=== PATIENT | female | born 1960 | race Caucasian/White ===

== ENCOUNTER 2016-12-06 14:31 | Observation (INO) | payer BC ==
--- NOTE | 2016-12-06 15:03 | ER Document Report ---
ED Medical Screen (RME) - General Chief Complaint: Dizziness Stated Complaint: ABNORMAL LABS Time Seen by Provider: 12/06/16 14:58 Mode of Arrival: Ambulatory Information source: Patient Notes: 56 yr old female hx of iron deficiency and pernicious anemia presents with complaints of dizzy, heart racing I have greeted and performed a rapid initial assessment of this patient. A comprehensive ED assessment and evaluation of the patient, analysis of test results and completion of the medical decision making process will be conducted by additional ED providers. PHYSICAL EXAMINATION: GENERAL: Well-appearing, well-nourished and in no acute distress. HEAD: Atraumatic, normocephalic. EYES: Pupils equal round extraocular movements intact, conjunctiva are normal. ENT: Nares patent NECK: Normal range of motion LUNGS: No respiratory distress Musculoskeletal: Normal range of motion NEUROLOGICAL: Normal speech, normal gait. PSYCH: Normal mood, normal affect. SKIN: Warm, Dry, normal turgor, no rashes or lesions noted. TRAVEL OUTSIDE OF THE [place] IN LAST 30 DAYS: No - Related Data Allergies/Adverse Reactions: Penicillins Allergy (Severe, Verified 12/06/16 14:36) RASH Past Medical History - Social History Chew tobacco use (# tins/day): No Frequency of alcohol use: None Drug Abuse: None - Past Medical History Cardiac Medical History: Reports: Hx Hypertension - ON MEDS Denies: Hx Atrial Fibrillation, Hx Congestive Heart Failure, Hx Coronary Artery Disease, Hx DVT, Hx Heart Attack, Hx Hypercholesterolemia, Hx Peripheral Vascular Disease Pulmonary Medical History: Reports: Hx Asthma - Allergic asthma Denies: Hx Bronchitis, Hx COPD, Hx Pneumonia Neurological Medical History: Denies: Hx Cerebrovascular Accident, Hx Seizures Renal/ Medical History: Denies: Hx Peritoneal Dialysis GI Medical History: Reports: Hx Gastroesophageal Reflux Disease Musculoskeltal Medical History: Denies Hx Arthritis Psychiatric Medical History: Denies: Hx Depression Past Surgical History: Reports: Hx Section, Hx Hysterectomy - Immunizations Hx Diphtheria, Pertussis, Tetanus Vaccination: No Physical Exam - Vital signs Vitals: Temp Pulse Resp BP Pulse Ox 98.5 F 106 H 20 160/80 H 97 12/06/16 14:36 12/06/16 14:36 12/06/16 14:36 12/06/16 14:36 12/06/16 14:36 Course - Vital Signs Vital signs: Temp Pulse Resp BP Pulse Ox 98.5 F 106 H 20 160/80 H 97 12/06/16 14:36 12/06/16 14:36 12/06/16 14:36 12/06/16 14:36 12/06/16 14:36
[2016-12-06 15:48] LABS: ABSOLUTE LYMPHOCYTES (AUTO) 0.9 10^3/uL (0.5-4.7); ABSOLUTE MONOCYTES (AUTO) 0.4 10^3/uL (0.1-1.4); ABSOLUTE NEUT (AUTO) 9.3 10^3/uL (1.7-8.2); BASOPHILS % (AUTO) 0.5 % (0-2); EOSINOPHILS % (AUTO) 0.2 % (0-6); HEMATOCRIT 24.6 % (36.0-47.0); HEMOGLOBIN 8.1 g/dL (12.0-15.5); HGB HCT DIFFERENCE -0.3; MEAN CORPUSCULAR HEMOGLOBIN 29.9 pg (27.0-33.4); MEAN CORPUSCULAR VOLUME 91 fl (80-97); MONOCYTES % (AUTO) 3.8 % (3-13); RED BLOOD COUNT 2.72 10^6/uL (3.72-5.28); RED CELL DISTRIBUTION WIDTH 15.6 % (11.5-14.0); SEGMENTED NEUTROPHILS % (AUTO) 87.5 % (42-78); WHITE BLOOD COUNT 10.6 10^3/uL (4.0-10.5)
[2016-12-06 16:12] LABS: ALANINE AMINOTRANSFERASE 25 U/L (9-52); ALKALINE PHOSPHATASE 73 U/L (38-126); ANION GAP 9 (5-19); ASPARTATE AMINO TRANSFERASE 16 U/L (14-36); BILIRUBIN,DIRECT 0.2 mg/dL (0.0-0.4); BILIRUBIN,TOTAL 0.2 mg/dL (0.2-1.3); BLOOD UREA NITROGEN 17 mg/dL (7-20); CALCIUM 9.5 mg/dL (8.4-10.2); CARBON DIOXIDE 26 mmol/L (22-30); CHLORIDE 106 mmol/L (98-107); CREATININE RESULT 0.63 mg/dL (0.52-1.25); GLUCOSE 123 mg/dL (75-110); POTASSIUM 4.3 mmol/L (3.6-5.0); TOTAL PROTEIN 6.5 g/dL (6.3-8.2)
[2016-12-06] MEDS ORDERED: NORMAL SALINE 250 ML IV PRN (16:33)
--- NOTE | 2016-12-06 16:35 | ER Document Report ---
ED General - General Chief Complaint: Dizziness Stated Complaint: ABNORMAL LABS Time Seen by Provider: 12/06/16 14:58 Mode of Arrival: Ambulatory Notes: Patient is feeling weak and dizzy for the past couple of days. She is also noticed her heart rate increasing whenever she is moving around. Patient has a history of anemia probably secondary to GI bleeding, she says that she has been worked up multiple times with multiple colonoscopies. She has been seen at [facility] and evaluated. No one can find the source of the bleeding that happens intermittently. Her last bad bleeding episode was in April 2015 and she was admitted here and transfused. She is followed by Dr. Juarez. She gets iron infusions under his direction. She had an outpatient CBC done about a month ago showing a hemoglobin of 10. Patient denies any nausea or vomiting. She has had some diarrhea today and black-looking stool. She took an iron pill last night and is not sure if that might be causing the change in color of her stools. TRAVEL OUTSIDE OF THE [place] IN LAST 30 DAYS: No - Related Data Allergies/Adverse Reactions: Penicillins Allergy (Severe, Verified 12/06/16 14:36) RASH Past Medical History - General Information source: Patient - Social History Smoking Status: Never Smoker Chew tobacco use (# tins/day): No Frequency of alcohol use: None Drug Abuse: None Family History: Reviewed & Not Pertinent, CAD, Other - mother was anemic father of [place] age 88 - Past Medical History Cardiac Medical History: Reports: Hx Hypertension - ON MEDS Pulmonary Medical History: Reports: Hx Asthma - Allergic asthma GI Medical History: Reports: Hx Gastroesophageal Reflux Disease, Hx Colonoscopy , Hx Endoscopy Past Surgical History: Reports: Hx Section, Hx Herniorrhaphy, Hx Hysterectomy - Immunizations Hx Diphtheria, Pertussis, Tetanus Vaccination: No Hx Pneumococcal Vaccination: 12/01/07 Review of Systems - Review of Systems Notes: REVIEW OF SYSTEMS: CONSTITUTIONAL : Denies fever. EENT: Denies eye, ear, nose or mouth or throat pain or other symptoms. CARDIOVASCULAR: Denies chest pain. Noticed increased heart rate with physical activity over the past couple of days. RESPIRATORY: Denies cough, chest congestion, or shortness of breath. GASTROINTESTINAL: Denies abdominal pain or nausea, vomiting, but had black diarrhea today. GENITOURINARY: Denies difficulty or painful urinating, urinary frequency, blood in urine. MUSCULOSKELETAL: Denies back or neck pain. Denies joint pain or swelling. SKIN: Denies rash or skin lesions. NEUROLOGICAL: Denies LOC or altered mental status. Denies headache. Denies sensory loss or motor deficits. ALL OTHER SYSTEMS REVIEWED AND NEGATIVE. Physical Exam - Vital signs Vitals: Temp Pulse Resp BP Pulse Ox 98.5 F 106 H 20 160/80 H 97 12/06/16 14:36 12/06/16 14:36 12/06/16 14:36 12/06/16 14:36 12/06/16 14:36 Interpretation: Normal, Tachycardic - At 106. - Notes Notes: PHYSICAL EXAMINATION: GENERAL: Well-appearing, in no acute distress. Vital signs are normal except for heart rate of 106. HEAD: Atraumatic, normocephalic. EYES: Pupils equal round and reactive to light, extraocular movements intact. ENT: oropharynx clear without exudates. Moist mucous membranes. NECK: Normal range of motion, supple. LUNGS: Breath sounds clear and equal bilaterally. HEART: Regular rate and rhythm without murmurs. ABDOMEN: Soft, nontender. No guarding or rebound. BACK: No tenderness throughout entire back. EXTREMITIES: Normal range of motion without pain. NEUROLOGICAL: Normal speech, normal gait. Normal sensory, motor, and reflex exams. Awake, alert, and oriented x3. Cranial nerves normal. SKIN: Warm, dry, no rashes. Course - Re-evaluation Re-evalutation: 12/06/16 16:[address] Peace, primary care provider for this patient, and he will admit her for transfusions. 12/06/16 16:53 Hemoglobin is 8.1 and hematocrit is 24.6. - Vital Signs Vital signs: Temp Pulse Resp BP Pulse Ox 98.5 F 106 H 12 135/65 H 100 12/06/16 14:36 12/06/16 14:36 12/06/16 16:01 12/06/16 16:01 12/06/16 16:01 - Laboratory Result Diagrams: 12/06/16 15:30 12/06/16 15:30 Laboratory results interpreted by me: 12/06/16 12/06/16 12/06/16 15:30 15:30 15:30 WBC 10.6 H RBC 2.72 L Hgb 8.1 L Hct 24.6 L RDW 15.6 H Seg Neutrophils % 87.5 H Lymphocytes % 8.0 L Absolute Neutrophils 9.3 H Glucose 123 H Crossmatch See Detail Discharge - Discharge Clinical Impression: Anemia, GI bleeding Condition: Stable Disposition: ADMITTED OBSERVATION Admitting Provider: Merrill Unit Admitted: Telemetry Referrals: GIBSON PEACE MD [Primary Care Provider] - Follow up as needed
[2016-12-07] MEDS ORDERED: INFLUENZA ADLT QUAD (36MOS+) 2017-18 VAC 0.5 ML SYR IM PRN (00:03)
--- NOTE | 2016-12-07 06:01 | PDOC H&P ---
History of Present Illness Admission Date/PCP: 12/06/16 19:47 GIBSON PEACE MD Patient complains of: racing presyncope History of Present Illness: ROSALVA YAP is a 56 year old female with 7y history of blood loss anemia dependent on ferrahem which she last had in April. Even one iron pill a day caused nausea. In 2009 colonoscopy was negative. In 2012 ferritin<4 and capsule endoscopy was negative. In 2014 antiIF+ and monthly b12 shots were started. In [address] Michaels fulbrunoated a sessile sigmoid polyp. In 2016 capsule showed jejunal ulcer. Cutler device assisted enteroscopy of distal jejunum was negative. A tatoo was placed. Past Medical History Cardiac Medical History: Reports: Hyperlipidema, Hypertension - ON MEDS Denies: Atrial Fibrillation, Congestive Heart Failure, Coronary Artery Disease, DVT, Myocardial Infarction, Peripheral Vascular Disease Pulmonary Medical History: Reports: Asthma - Allergic asthma Denies: Bronchitis, Chronic Obstructive Pulmonary Disease (COPD), Pneumonia EENT Medical History: Reports: None Neurological Medical History: Reports: None Denies: Seizures Endocrine Medical History: Reports: None Renal/ Medical History: Reports: None Malignancy Medical History: Reports: None GI Medical History: Reports: Gastroesophageal Reflux Disease Musculoskeltal Medical History: Denies: Arthritis Psychiatric Medical History: Denies: Depression Traumatic Medical History: Reports: None Hematology: Reports: Anemia Infectious Medical History: Reports: None Past Surgical History Past Surgical History: Reports: Section, Herniorrhaphy, Hysterectomy Social History Information Source: Dr. Morris Lives with: Family Smoking Status: Never Smoker Frequency of Alcohol Use: None Hx Recreational Drug Use: No Drugs: None Hx Prescription Drug Abuse: No - Advance Directive Resuscitation Status: Full Code Family History Family History: CAD, CVA, Hypertension, Malignancy, Other - mother was anemic father of [place] age 88 Parental Family History Reviewed: Yes Children Family History Reviewed: Yes Sibling(s) Family History Reviewed.: Yes Medication/Allergy Home Medications: Sertraline HCl [Zoloft 50 mg Tablet] 50 mg PO DAILY #30 tablet 04/23/15 Metoprolol Succinate 25 mg PO DAILY 12/06/16 Pantoprazole Sodium [Protonix] 40 mg PO QAM 12/06/16 Cyanocobalamin (Vitamin B-12) [Physicians Ez Use B-12] 1,000 mcg IJ [id number] 10/16 Allergies/Adverse Reactions: Penicillins Allergy (Severe, Verified 12/06/16 14:36) RASH Review of Systems Constitutional: ABSENT: fever(s), headache(s), weight loss Nose, Mouth, and Throat: ABSENT: sore throat Cardiovascular: PRESENT: dyspnea on exertion, palpitations. ABSENT: chest pain , orthropnea Respiratory: ABSENT: cough Gastrointestinal: PRESENT: diarrhea - twice yesterday. ABSENT: abdominal pain, constipation, hematochezia, melena, vomiting Genitourinary: ABSENT: dysuria, hematuria Physical Exam Vital Signs: Temp Pulse Resp BP Pulse Ox 98.1 F 74 16 125/60 97 12/07/16 04:15 12/07/16 04:15 12/07/16 04:15 12/07/16 04:15 12/07/16 04:15 Intake & Output 12/05/16 12/06/16 12/07/16 07:59 07:59 07:59 Intake Total 1100 Balance 1100 General appearance: PRESENT: no acute distress Mouth exam: PRESENT: moist Neck exam: ABSENT: lymphadenopathy, tenderness, thyromegaly, tracheal deviation Respiratory exam: PRESENT: clear to auscultation graciela Cardiovascular exam: ABSENT: diastolic murmur, irregular rhythm, systolic murmur Vascular exam: ABSENT: pallor - after 3u GI/Abdominal exam: ABSENT: mass, organolmegaly, tenderness Extremities exam: ABSENT: pedal edema Neurological exam: PRESENT: oriented to situation Psychiatric exam: PRESENT: appropriate affect Results Laboratory Results: Abnormal - 24 hr 12/06/16 12/06/16 12/06/16 15:30 15:30 15:30 WBC 10.6 H RBC 2.72 L Hgb 8.1 L Hct 24.6 L RDW 15.6 H Seg Neutrophils % 87.5 H Lymphocytes % 8.0 L Absolute Neutrophils 9.3 H Glucose 123 H Crossmatch See Detail Assessment & Plan - Diagnosis (1) Iron deficiency anemia due to chronic blood loss Is this a current diagnosis for this admission?: Yes Plan: had 3u prbc. Hct and iron studies pending.
--- NOTE | 2016-12-07 06:07 | PDOC DISCHARGE SUMMARY ---
General - Admit/Disc Date/PCP Admission Date/Primary Care Provider: 12/06/16 19:47 GIBSON PEACE MD Discharge Date: 12/07/16 - Discharge Diagnosis (1) Iron deficiency anemia due to chronic blood loss Is this a current diagnosis for this admission?: Yes (2) Pernicious anemia Is this a current diagnosis for this admission?: Yes - Additional Information Resuscitation Status: Full Code Discharge Diet: As Tolerated Discharge Activity: Activity As Tolerated Home Medications: Sertraline HCl [Zoloft 50 mg Tablet] 50 mg PO DAILY #30 tablet 04/23/15 Metoprolol Succinate 25 mg PO DAILY 12/06/16 Pantoprazole Sodium [Protonix] 40 mg PO QAM 12/06/16 Cyanocobalamin (Vitamin B-12) [Physicians Ez Use B-12] 1,000 mcg IJ [id number] 10/16 History of Present Illness Patient complains of: racing presyncope History of Present Illness: ROSALVA YAP is a 56 year old female with 7y history of blood loss anemia dependent on ferrahem which she last had in April. Even one iron pill a day caused nausea. In 2009 colonoscopy was negative. In 2012 ferritin<4 and capsule endoscopy was negative. In 2014 antiIF+ and monthly b12 shots were started. In [address] Michaels fulbrunoated a sessile sigmoid polyp. In 2015 capsule showed jejunal ulcer. Cutler device assisted enteroscopy of distal jejunum was negative. A tatoo was placed. Hospital Course Hospital Course: back to baseline after 3u prbc Physical Exam Vital Signs: Temp Pulse Resp BP Pulse Ox 98.1 F 74 16 125/60 97 12/07/16 04:15 12/07/16 04:15 12/07/16 04:15 12/07/16 04:15 12/07/16 04:15 Intake & Output 12/05/16 12/06/16 12/07/16 07:59 07:59 07:59 Intake Total 1100 Balance 1100 General appearance: PRESENT: no acute distress Respiratory exam: PRESENT: clear to auscultation graciela Cardiovascular exam: ABSENT: clicks, irregular rhythm, systolic murmur GI/Abdominal exam: ABSENT: mass, organolmegaly, tenderness Extremities exam: ABSENT: pedal edema Neurological exam: PRESENT: oriented to situation Results Laboratory Results: Labs- Last Values WBC 10.6 10^3/uL (4.0-10.5) H 12/06/16 15:30 RBC 2.72 10^6/uL (3.72-5.28) L 12/06/16 15:30 Hgb 8.1 g/dL (12.0-15.5) L 12/06/16 15:30 Hct 24.6 % (36.0-47.0) L 12/06/16 15:30 MCV 91 fl (80-97) 12/06/16 15:30 MCH 29.9 pg (27.0-33.4) 12/06/16 15:30 MCHC 33.0 g/dL (32.0-36.0) 12/06/16 15:30 RDW 15.6 % (11.5-14.0) H 12/06/16 15:30 Plt Count 278 10^3/uL (150-450) 12/06/16 15:30 Seg Neutrophils % 87.5 % (42-78) H 12/06/16 15:30 Lymphocytes % 8.0 % (13-45) L 12/06/16 15:30 Monocytes % 3.8 % (3-13) 12/06/16 15:30 Eosinophils % 0.2 % (0-6) 12/06/16 15:30 Basophils % 0.5 % (0-2) 12/06/16 15:30 Absolute Neutrophils 9.3 10^3/uL (1.7-8.2) H 12/06/16 15:30 Absolute Lymphocytes 0.9 10^3/uL (0.5-4.7) 12/06/16 15:30 Absolute Monocytes 0.4 10^3/uL (0.1-1.4) 12/06/16 15:30 Absolute Eosinophils 0.0 10^3/uL (0.0-0.6) 12/06/16 15:30 Absolute Basophils 0.0 10^3/uL (0.0-0.2) 12/06/16 15:30 Sodium 141.0 mmol/L (137-145) 12/06/16 15:30 Potassium 4.3 mmol/L (3.6-5.0) 12/06/16 15:30 Chloride 106 mmol/L (98-107) 12/06/16 15:30 Carbon Dioxide 26 mmol/L (22-30) 12/06/16 15:30 Anion Gap 9 (5-19) 12/06/16 15:30 BUN 17 mg/dL (7-20) 12/06/16 15:30 Creatinine 0.63 mg/dL (0.52-1.25) 12/06/16 15:30 Est GFR ( Amer) > 60 (>60) 12/06/16 15:30 Est GFR (Non-Af Amer) > 60 (>60) 12/06/16 15:30 Glucose 123 mg/dL (75-110) H 12/06/16 15:30 Calcium 9.5 mg/dL (8.4-10.2) 12/06/16 15:30 Total Bilirubin 0.2 mg/dL (0.2-1.3) 12/06/16 15:30 Direct Bilirubin 0.2 mg/dL (0.0-0.4) 12/06/16 15:30 Indirect Bilirubin Not Reportable 12/06/16 15:30 Neonat Total Bilirubin Not Reportable 12/06/16 15:30 AST 16 U/L (14-36) 12/06/16 15:30 ALT 25 U/L (9-52) 12/06/16 15:30 Alkaline Phosphatase 73 U/L (38-126) 12/06/16 15:30 Total Protein 6.5 g/dL (6.3-8.2) 12/06/16 15:30 Albumin 4.0 g/dL (3.5-5.0) 12/06/16 15:30 Blood Type O NEGATIVE 12/06/16 15:30 Antibody Screen NEGATIVE 12/06/16 15:30 Crossmatch See Detail 12/06/16 15:30 EKG Comments: normal Qualifiers PATEINT BEING DISCHARGED WITH ANY OF THE FOLLOWING DIAGNOSIS?: No Plan Discharge Plan: home. Dr Juarez in 3d. in 11d
[2016-12-07 07:11] LABS: HEMATOCRIT 31.7 % (36.0-47.0); HGB HCT DIFFERENCE 0.4; MEAN CORPUSCULAR HEMOGLOBIN 30.3 pg (27.0-33.4); MEAN CORPUSCULAR HGB CONC 33.9 g/dL (32.0-36.0); MEAN CORPUSCULAR VOLUME 89 fl (80-97); RED BLOOD COUNT 3.55 10^6/uL (3.72-5.28); RED CELL DISTRIBUTION WIDTH 15.1 % (11.5-14.0); WHITE BLOOD COUNT 7.7 10^3/uL (4.0-10.5)
[2016-12-07 07:12] LABS: HEMOGLOBIN 10.7 g/dL (12.0-15.5)
[2016-12-07] MEDS ORDERED: LANSOPRAZOLE 30 MG TAB.RAP.DR PO SCH (08:00)
[2016-12-07 08:21] VITALS: BP 112/56
[2016-12-07] MEDS ORDERED: SERTRALINE HCL 50 MG TABLET PO SCH (10:00)
--- NOTE | 2016-12-07 17:02 | EKG REPORT ---
SEVERITY:- NORMAL ECG - SINUS RHYTHM : Confirmed by: Elizabeth Joiner MD 07-Dec-2016 17:01:23
== END 2016-12-07 09:08 | disposition home or self-care (01) ==
LOC: ER 14:31 → EH 17:26 → UNDOADMOB 17:26 → EH 19:22 → 5 19:22 → EH 19:47 → 5 19:47
PROVIDERS: ADMIT Family Medicine; ATTEND Family Medicine
PROC: 30233N1 Transfusion of Nonautologous Red Blood Cells into Peripheral Vein, Percutaneous Approach (ICD-10-PCS; principal; 2016-12-06)
PROC: 30233N1 Transfusion of Nonautologous Red Blood Cells into Peripheral Vein, Percutaneous Approach (ICD-10-PCS; 2016-12-07)
DX: D50.0 Iron deficiency anemia secondary to blood loss (chronic) (principal); D51.0 Vitamin B12 deficiency anemia due to intrinsic factor deficiency; Z86.010 Personal history of colon polyps; K28.9 Gastrojejunal ulcer, unspecified as acute or chronic, without hemorrhage or perforation; R19.7 Diarrhea, unspecified; I10 Essential (primary) hypertension; Z90.710 Acquired absence of both cervix and uterus; Z79.899 Other long term (current) drug therapy; Z98.890 Other specified postprocedural states; Z80.9 Family history of malignant neoplasm, unspecified; Z83.2 Family history of diseases of the blood and blood-forming organs and certain disorders involving the immune mechanism
CPT/HCPCS: 93005; 99285; 86900; 86901; 36415 ×2; 36430; 86850; 82607; 82728; 82746; 83540; 83550; 85025; 85027; 85045; 80053; 86920; 93010; P9016 ×2

== ENCOUNTER 2017-02-04 08:03 | Outpatient (CLI) | payer BC ==
[~2017-02-04 08:03] MED LIST: IRON DEXTRAN COMPLEX IV PRN; NORMAL SALINE 250 ML IV PRN; NORMAL SALINE IV PRN
[2017-02-04 08:22] VITALS: BP 157/74
== END 2017-02-04 13:53 | disposition home or self-care (01) ==
LOC: II 08:03 → 5TH 08:06 → II 13:53
PROVIDERS: ATTEND Internal Medicine
PROC: 3E033GC Introduction of Other Therapeutic Substance into Peripheral Vein, Percutaneous Approach (ICD-10-PCS; principal; 2017-02-04)
DX: D50.0 Iron deficiency anemia secondary to blood loss (chronic) (principal)
CPT/HCPCS: 96365; 96366; J1750; J7040; 96367

== ENCOUNTER 2017-12-30 12:05 | Outpatient (CLI) | payer BC ==
[~2017-12-30 12:05] MED LIST changes: +ACETAMINOPHEN 325 MG TABLET PO PRN; +DIPHENHYDRAMINE HCL 25 MG CAPSULE PO PRN; +FUROSEMIDE INJ/PF 20 MG/2 ML SDV IV PRN; -IRON DEXTRAN COMPLEX IV PRN; -NORMAL SALINE 250 ML IV PRN; -NORMAL SALINE IV PRN
[2017-12-30 12:22] LABS: HEMATOCRIT 27.5 % (36.0-47.0); HEMOGLOBIN 9.1 g/dL (12.0-15.5); MEAN CORPUSCULAR HEMOGLOBIN 27.2 pg (27.0-33.4); MEAN CORPUSCULAR HGB CONC 33.1 g/dL (32.0-36.0); MEAN CORPUSCULAR VOLUME 82 fl (80-97); PLATELET COUNT 313 10^3/uL (150-450); RED BLOOD COUNT 3.34 10^6/uL (3.72-5.28); RED CELL DISTRIBUTION WIDTH 17.3 % (11.5-14.0); WHITE BLOOD COUNT 9.6 10^3/uL (4.0-10.5)
[2017-12-30] MEDS ORDERED: NORMAL SALINE 250 ML IV PRN (12:33)
[2017-12-30 15:21] VITALS: BP 114/56
== END 2017-12-30 15:42 | disposition home or self-care (01) ==
LOC: II 12:05 → 5TH 12:30 → II 15:42
PROVIDERS: ATTEND Internal Medicine
PROC: 30233N1 Transfusion of Nonautologous Red Blood Cells into Peripheral Vein, Percutaneous Approach (ICD-10-PCS; principal; 2017-12-30)
DX: D64.9 Anemia, unspecified (principal)
CPT/HCPCS: 86900; 86901; 36415; 36430; 86850; 86920; P9016

== ENCOUNTER 2018-05-04 05:17 | Emergency (ER) | payer BC ==
[2018-05-04] MEDS ORDERED: NORMAL SALINE 1000 ML 1,000 ML IV ONE (06:05)
[2018-05-04 06:08] LABS: ABSOLUTE LYMPHOCYTES (AUTO) 0.6 10^3/uL (0.5-4.7); ABSOLUTE MONOCYTES (AUTO) 0.3 10^3/uL (0.1-1.4); ABSOLUTE NEUT (AUTO) 3.3 10^3/uL (1.7-8.2); BASOPHILS % (AUTO) 1.1 % (0-2); EOSINOPHILS % (AUTO) 1.1 % (0-6); LYMPHOCYTES % (AUTO) 14.5 % (13-45); MEAN CORPUSCULAR HEMOGLOBIN 25.4 pg (27.0-33.4); MEAN CORPUSCULAR HGB CONC 31.8 g/dL (32.0-36.0); MEAN CORPUSCULAR VOLUME 80 fl (80-97); MONOCYTES % (AUTO) 7.3 % (3-13); PLATELET COUNT 243 10^3/uL (150-450); RED BLOOD COUNT 2.26 10^6/uL (3.72-5.28); RED CELL DISTRIBUTION WIDTH 19.3 % (11.5-14.0); TOTAL CELLS COUNTED % (AUTO) 100 %; WHITE BLOOD COUNT 4.3 10^3/uL (4.0-10.5)
[2018-05-04 06:16] LABS: ALANINE AMINOTRANSFERASE 21 U/L (9-52); ALBUMIN 3.8 g/dL (3.5-5.0); ALKALINE PHOSPHATASE 101 U/L (38-126); ANION GAP 7 (5-19); ASPARTATE AMINO TRANSFERASE 13 U/L (14-36); BILIRUBIN,DIRECT 0.1 mg/dL (0.0-0.4); BILIRUBIN,TOTAL 0.2 mg/dL (0.2-1.3); BLOOD UREA NITROGEN 11 mg/dL (7-20); CALCIUM 8.6 mg/dL (8.4-10.2); CARBON DIOXIDE 27 mmol/L (22-30); CHLORIDE 107 mmol/L (98-107); GLUCOSE 108 mg/dL (75-110); POTASSIUM 3.9 mmol/L (3.6-5.0); TOTAL PROTEIN 6.3 g/dL (6.3-8.2)
[2018-05-04] MEDS ORDERED: NORMAL SALINE 250 ML IV PRN (06:27)
--- NOTE | 2018-05-04 06:40 | ER Document Report ---
ED General - General Chief Complaint: GI Bleeding Stated Complaint: WEAKNESS/HEADACHE Time Seen by Provider: 05/04/18 06:04 Primary Care Provider: SUSAN BURDICK MD [Primary Care Provider] - Follow up as needed Notes: 58-year-old female with history of chronic anemia due to unknown source GI bleeding presents with weakness fatigue. Patient was supposed to get 2 units of blood here in the hospital today but became very weak and fatigued last night. Denied any chest pain or shortness of breath. For the last 7-8 years the patient has been seeing gastroenterology has had endoscopy colonoscopy capsule endoscopy. She has been getting frequent blood transfusions. The source of the bleeding has not been located. Has underwent bleeding scans. The patient sees Dr. Neli camilo for hematology. The patient will get her 2 units of blood while she is here we will check some generalized labs EKG otherwise this is probably just acute on chronic anemia causing her symptoms. I see no reason to admit the patient because this is been chronic for the last 7 or 8 years has been worked up extensively. And may continue to do this outpatient. I do not think inpatient would benefit in any way TRAVEL OUTSIDE OF THE [place] IN LAST 30 DAYS: No - Related Data Allergies/Adverse Reactions: Penicillins Allergy (Severe, Verified 12/06/16 14:36) RASH Past Medical History - Social History Smoking Status: Never Smoker Chew tobacco use (# tins/day): No Frequency of alcohol use: None Drug Abuse: None Family History: CAD, CVA, Hypertension, Malignancy, Other - mother was anemic father of [place] age 88 Patient has suicidal ideation: No Patient has homicidal ideation: No - Past Medical History Cardiac Medical History: Reports: Hx Hypercholesterolemia, Hx Hypertension - ON MEDS Denies: Hx Atrial Fibrillation, Hx Congestive Heart Failure, Hx Coronary Artery Disease, Hx DVT, Hx Heart Attack, Hx Peripheral Vascular Disease Pulmonary Medical History: Reports: Hx Asthma - Allergic asthma Denies: Hx Bronchitis, Hx COPD, Hx Pneumonia Neurological Medical History: Denies: Hx Cerebrovascular Accident, Hx Seizures Renal/ Medical History: Denies: Hx Peritoneal Dialysis GI Medical History: Reports: Hx Gastroesophageal Reflux Disease, Hx Colonoscopy, Hx Endoscopy Musculoskeletal Medical History: Denies Hx Arthritis Psychiatric Medical History: Denies: Hx Depression Past Surgical History: Reports: Hx Section, Hx Herniorrhaphy, Hx Hysterectomy - Immunizations Hx Diphtheria, Pertussis, Tetanus Vaccination: No Hx Pneumococcal Vaccination: 12/01/07 Physical Exam - Vital signs Vitals: Resp 10 L 05/04/18 05:27 Course - Re-evaluation Re-evalutation: 05/04/18 09:43 The patient is been having problems with this bleeding for the last 7-8 years. This is chronic in nature she gets regular IV blood transfusions. [employer] to set her up for 2 units already today we will give her the 2 units and have her follow-up. She is been worked up consistently in the past I do not feel hospitalization would benefit her at this time. 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 - Vital Signs Vital signs: Temp Pulse Resp BP Pulse Ox 98.3 F 11 L 109/57 L 97 05/04/18 07:00 05/04/18 07:16 05/04/18 07:16 05/04/18 07:16 - Laboratory Result Diagrams: 05/04/18 05:33 05/04/18 05:33 Laboratory results interpreted by me: 05/04/18 05/04/18 05/04/18 05:33 05:33 05:48 RBC 2.26 L Hgb 5.7 L Hct 18.0 L MCH 25.4 L MCHC 31.8 L RDW 19.3 H AST 13 L Crossmatch See Detail Discharge - Discharge Clinical Impression: GI bleeding Qualifiers: GI bleed type/associated pathology: unspecified gastrointestinal hemorrhage type Qualified Code(s): K92.2 - Gastrointestinal hemorrhage, unspecified Anemia, iron deficiency Qualifiers: Iron deficiency anemia type: chronic blood loss Qualified Code(s): D50.0 - Iron deficiency anemia secondary to blood loss (chronic) Condition: Good Disposition: HOME, SELF-CARE Instructions: Anemia, Iron Deficiency ([facility]) Referrals: SUSAN BURDICK MD [Primary Care Provider] - Follow up as needed
[2018-05-04 07:10] LABS: HEMOGLOBIN 5.7 g/dL (12.0-15.5)
--- NOTE | 2018-05-04 10:27 | EKG REPORT ---
SEVERITY:- NORMAL ECG - SINUS RHYTHM : Confirmed by: Elizabeth Joiner MD 04-May-2018 10:25:49
[2018-05-04] MEDS ORDERED: ACETAMINOPHEN 325 MG TABLET PO ONE (10:50)
[2018-05-05 11:14] VITALS: BP 108/60
== END 2018-05-04 17:06 | disposition home or self-care (01) ==
LOC: ER 05:17
DX: K92.2 Gastrointestinal hemorrhage, unspecified (principal); D50.0 Iron deficiency anemia secondary to blood loss (chronic); R53.1 Weakness; R53.83 Other fatigue; I10 Essential (primary) hypertension; J45.909 Unspecified asthma, uncomplicated; Z88.0 Allergy status to penicillin
CPT/HCPCS: 93005; 99285; 96360; 86900; 86901; 36415; 36430; 86850; 85025; 80053; 84484; 86920; 93010; P9016; J7030; J7050

== ENCOUNTER → 2018-05-26 | Outpatient (CLI) | payer BC ==
--- NOTE | 2018-05-26 21:24 | EKG REPORT ---
SEVERITY:- NORMAL ECG - SINUS RHYTHM : Confirmed by: Elizabeth Joiner MD 26-May-2018 21:23:18
== END ==
LOC: OD 10:21
PROVIDERS: ATTEND Family Medicine
DX: I49.40 Unspecified premature depolarization (principal)
CPT/HCPCS: 93005; 93010

== ENCOUNTER → 2018-05-27 | Outpatient (CLI) | payer BC | LOC: OD 10:07 | PROVIDERS: ATTEND Family Medicine | DX: Z53.9 Procedure and treatment not carried out, unspecified reason (principal) ==